=== PATIENT | female | born 1985 | race Two or more races ===

== ENCOUNTER → 2024-07-29 | Outpatient (CLI) | payer BC, SELFPAY ==
--- NOTE | 2024-07-29 08:30 | XR_ITS ---
Examination: CT abdomen and pelvis without contrast. Coronal 3-D reconstructions. Sagittal 2-D reconstructions. Date and time of exam:July 29, 2024 0840 hours INDICATIONS: Onset left lower abdominal pain beginning 2 years ago CTDI: vol (mGy): 5.1 DLP: (mGycm): 254 Technique: Axial images of the abdomen have been obtained, 3 mm slice thickness Intravenous contrast material has not been administered. Low dose protocols were performed. One or more of the following dose reduction techniques were used; automated exposure control, adjustment of the mA and/or KV according to patient size, use of iterative reconstruction technique. Findings: No visualized liver or splenic lesion No gallstones No pancreatic or adrenal mass Moderate left mild right renal parenchymal scar formation 2 mm calculus lower pole right kidney, no hydronephrosis or renal calculi Aorta normal size No pericecal inflammatory change No bowel obstruction or diverticulitis Anteverted uterus Anterior pelvic cyst 7.9 x 4.8 cm Urinary bladder intact IMPRESSION: 2 mm lower pole nonobstructing right renal calculus Anterior pelvic cyst 7.9 x 4.8 cm, recommend pelvic sonography follow-up
== END | disposition home or self-care (01) ==
LOC: CCTX 08:23
PROVIDERS: PCP Family Medicine; Referring Provider Internal Medicine; Visit Provider Internal Medicine
DX: N20.0 Calculus of kidney (principal); N94.89 Other specified conditions associated with female genital organs and menstrual cycle
CPT/HCPCS: 74176

== ENCOUNTER → 2024-09-22 | Outpatient (CLI) | payer BC, SELFPAY ==
[2024-09-22 07:40] LABS: Misc Send Out* See Sep Rpt
[2024-09-22 08:35] LABS: Basophils % (Auto) 0 % (0-2.5); Eosinophils # (Auto) 0.1 Thou/mm3 (0.0-0.5); Eosinophils % (Auto) 1 % (0-10); Hematocrit 38.6 % (36.0-46.0); Hemoglobin 12.4 g/dL (12.0-16.0); Immature Granulocytes % (Auto) 0 % (0-0); Immature Granulocytes Auto 0.02 Thou/mm3 (0.00-0.00); Lymphocytes # (Auto) 1.7 Thou/mm3 (1.0-4.8); Lymphocytes % (Auto) 25 % (10-50); Mean Corpuscular HGB Conc 32.1 g/dl (31.0-37.0); Mean Corpuscular Hemoglobin 25.7 pg (25.0-35.0); Mean Corpuscular Volume 80 fL (80-100); Monocytes # (Auto) 0.4 Thou/mm3 (0.0-0.8); Monocytes % (Auto) 7 % (0-12); Neutrophils # (Auto) 4.5 Thou/mm3 (1.8-7.7); Neutrophils % (Auto) 67 % (37-80); Nucleated Red Blood Cell % 0 /100 WBC (0); Platelet Count 217 Thou/mm3 (140-440); RDW Standard Deviation 43.8 fL (36.4-46.3); Red Blood Count 4.82 Miln/mm3 (4.00-5.20); White Blood Count 6.7 Thou/mm3 (3.6-11.0)
[2024-09-22 08:44] LABS: Glucose Estimated Average 103 mg/dL (80-131); Hemoglobin A1C 5.2 % Hgb (4.8-6.0)
[2024-09-22 08:53] LABS: T4 (Thyroxine) 8.8 mcg/dL (4.5-10.9)
[2024-09-22 09:05] LABS: Sed Rate (ESR) 29 mm/hr (0-20)
[2024-09-22 09:08] LABS: Alanine Aminotransferase 10 U/L (10-49); Albumin, Serum 4.8 gm/dL (3.5-5.0); Albumin/Globulin Ratio 1.7 (1.2-2.2); Alkaline Phosphatase 86 U/L (46-116); Anion Gap 9 (7-16); Aspartate Amino Transferase < 10 U/L (0-34); BUN/Creatinine Ratio 17 Ratio (12-20); Bilirubin,Total 0.6 mg/dL (0.3-1.2); Blood Urea Nitrogen 12 mg/dL (9-23); C-Reactive Protein 0.7 mg/dL (0.0-0.9); Cardiac Risk Estimate 2.7 RATIO (3.7-5.6); Chloride 105 mMol/L (98-107); Cholesterol 184 mg/dL (132-200); Creatinine (Component) 0.7 mg/dL (0.6-1.3); Free T3 3.3 pg/mL (2.3-4.2); Globulin 2.8 gm/dL (2.3-3.5); Glucose 85 mg/dL (74-106); HDL Cholesterol 69 mg/dL (40-60); LDL Cholesterol,Calculated 96 mg/dL (0-130); Osmolality,Calculated 278 (275-295); Potassium 4.2 mMol/L (3.4-5.1); Sodium 140 mMol/L (136-145); Thyroid Stimulating Hormone 2.72 uIU/mL (0.55-4.78); Total Protein 7.6 gm/dL (5.7-8.2); Triglycerides 97 mg/dL (30-150); eGFR > 60 See Note
[2024-09-29 06:24] LABS: ANA Pattern NUCLEAR, SPECKLED; ANA Screen, IFA POSITIVE (NEGATIVE); ANA Titer 1:40 titer; Thyroid Peroxidase Antibodies* 1 IU/mL (<9); Vitamin A (Retinol)* 42 mcg/dL (38-98)
== END | disposition home or self-care (01) ==
PROVIDERS: PCP Family Medicine; Referring Provider Nurse Practitioner Family; Visit Provider Nurse Practitioner Family
DX: R79.9 Abnormal finding of blood chemistry, unspecified (principal); R73.03 Prediabetes; E78.5 Hyperlipidemia, unspecified
CPT/HCPCS: 36415; 80053; 80061; 82172; 83036; 84255; 84436; 84443; 84481; 84590; 85025; 85652; 86038; 86140; 86376

== ENCOUNTER → 2024-10-01 | Outpatient (CLI) | payer BC, SELFPAY ==
--- NOTE | 2024-10-01 16:00 | XR_ITS ---
Examination: Pelvic ultrasound, transabdominal, complete Technique: Transabdominal ultrasound of the pelvis performed using grayscale imaging Date and time of exam: October 01, 2024 1636 hours INDICATIONS: Anterior pelvic 7.9 x [address] examination July 29, 2024, pelvic pain FINDINGS: Uterus 11.9 x 3.8 x 5.7 cm Endometrial stripe 0.2 cm No uterine mass or intrauterine gestation Right ovary 4.4 x 4.2 x 5.1 cm arterial flow, 3.6 x 3.9 cm cyst with internal echoes Left ovary 8.4 x 7.1 x 7.7 cm arterial flow, left ovarian cyst 8.0 x 5.2 cm with internal echoes IMPRESSION: Bilateral complex ovarian cysts, these may represent hemorrhagic cyst, recommend 3 month follow-up pelvic sonography
== END | disposition home or self-care (01) ==
PROVIDERS: PCP Family Medicine; Referring Provider Nurse Practitioner Family; Visit Provider Nurse Practitioner Family
DX: N83.202 Unspecified ovarian cyst, left side (principal); N83.201 Unspecified ovarian cyst, right side
CPT/HCPCS: 76856

== ENCOUNTER → 2024-11-01 | Outpatient (CLI) | payer BC, SELFPAY ==
[2024-11-01 07:33] LABS: Misc Send Out* See Sep Rpt
[2024-11-01 08:58] LABS: Follicle Stimulating Hormone 6.65 mIU/mL (See Note)
[2024-11-01 10:09] LABS: Ferritin 4 ng/mL (7.3-270.7)
[2024-11-01 10:18] LABS: Iron 39 mcg/dL (50-170)
[2024-11-15 06:54] LABS: ANA Pattern NUCLEAR, SPECKLED; ANA Screen, IFA POSITIVE (NEGATIVE); Complement Component C3* 145 mg/dL (83-193); DHEA Sulfate* 172 mcg/dL (23-266); DNA (ds) Antibody* 4 IU/mL; Methylmalonic Acid, GC/MS/MS* 173 nmol/L (55-335)
[2024-11-15 06:55] LABS: Homocysteine* 5.5 umol/L (<10.4); Luteinizing Hormone* 11.7 mIU/mL; Progesterone,LC/MS* <0.1 ng/mL; Prolactin* 24.9 ng/mL; Testosterone, Free,Dialysis 11.5 pg/mL (0.1-6.4); Testosterone, Total, Dialysis 107 ng/dL (2-45)
== END | disposition home or self-care (01) ==
LOC: COPL 07:13
PROVIDERS: PCP Family Medicine; Referring Provider Nurse Practitioner Family; Visit Provider Nurse Practitioner Family
DX: R87.1 Abnormal level of hormones in specimens from female genital organs (principal); D64.9 Anemia, unspecified; R76.0 Raised antibody titer
CPT/HCPCS: 36415; 82157; 82627; 82728; 83001; 83002; 83090; 83540; 83921; 84144; 84146; 84402; 84403; 86038; 86160; 86225